=== PATIENT | female | born 1975 | race Caucasian/White ===

== ENCOUNTER 2021-03-28 13:00 | Outpatient (CLI) | payer MEDICAID | END 2021-03-28 13:01 | disposition home or self-care (01) | LOC: CSHMAMMO 13:00 | PROVIDERS: ATTEND Nurse Practitioner Women's Health | DX: N63.23 Unspecified lump in the left breast, lower outer quadrant (principal); N60.02 Solitary cyst of left breast | CPT/HCPCS: G0279 ==